=== PATIENT | female | born 1995 | race Hispanic/Latino ===

== ENCOUNTER 2020-11-11 14:01 | Outpatient (CLI) | payer OTHER, SELFPAY ==
--- NOTE | ~2020-11-11 | US_ITS ---
EXAMINATION: US OB /maternal detail DATE: 11/11/2020 14:58 INDICATION: Second trimester anatomic survey TECHNIQUE: Real-time ultrasound of the pelvis was performed. COMPARISON: None. FINDINGS: There is a single living fetus in vertex presentation. The placenta is anterior and 1.3 cm from the i nternal cervical os. heart rate is 147 beats per minute (bpm). cardiac activity and feta l movement are noted. The amniotic fluid index is 19.4 cm which is normal. The following anatomy was identified as normal: 4 chamber heart 3 vessel cord cord insertion kidneys urinary bladder stomach spine diaphragm ventricles cisterna magna cerebellum The following biometric data were obtained: Biparietal diameter (BPD): 5.5 cm; head circumference (HC): 20.3 cm; abdominal circumference (AC): 18 .3 cm; femur length (FL): 3.7 cm. These measurements are concordant. Estimated weight is 522 g +/- 78 g, which correlates with the >97th percentile when 03/22/2021 i s used as estimated date of delivery. As single measurements, these parameters are each equal to the following estimated gestational ages w ith ranges of +/- 2 standard deviations: BPD: 23 weeks 0 days +/- 1 weeks 5 days. HC: 22 weeks 3 days +/- 1 weeks 3 days. AC: 23 weeks 1 days +/- 2 weeks 0 days. FL: 22 weeks 0 days +/- 1 weeks 6 days. estimated gestational age based solely on measurements from this exam is 22 weeks 5 days +/- 1 weeks 4 days. IMPRESSION: 1. Single living fetus in vertex presentation. 2. Estimated weight is 522 g +/- 78 g, which correlates with the >97th percentile when 1 is used as estimated date of delivery. 3. Low-lying placenta. Reviewed, dictated and finalized at location A. IMPRESSION: 1. Single living fetus in vertex presentation. 2. Estimated weight is 522 g +/- 78 g, which correlates with the >97th pe rcentile when 03/22/2021 is used as estimated date of delivery. 3. Low-lying placenta.
== END 2020-11-11 14:02 | disposition home or self-care (01) ==
PROVIDERS: Visit Provider Obstetrics & Gynecology
DX: O44.42 Low lying placenta NOS or without hemorrhage, second trimester (principal); Z3A.22 22 weeks gestation of pregnancy
CPT/HCPCS: 76805

== ENCOUNTER 2020-12-31 09:00 | Outpatient (CLI) | payer OTHER, SELFPAY ==
--- NOTE | ~2020-12-31 | US_ITS ---
EXAMINATION: US OB follow up DATE: 12/31/2020 09:38 INDICATION: Routine care during early third trimester of TECHNIQUE: Real-time ultrasound of the pelvis was performed. The interpreting radiologist was not pre sent for the study. COMPARISON: None. FINDINGS: There is a single living fetus in transverse lie with head to maternal left. The placenta is a nterior and not low-lying with caudal margin 9.4 cm from the internal cervical os. Normal cervical le ngth of 4.2 cm. heart rate is 132 beats per minute (bpm). The amniotic fluid index is 19.1 cm, which is normal (5th%-95%: 9.4-22.8 cm at 28 weeks estimated gestational age). The following biometric data were obtained: BPD: 8.1 cm -> 32 weeks 3 days Head circumference: 28.9 cm -> 31 weeks 5 days Abdominal circumference: 27.4 cm -> 31 weeks 3 days Femur length: 5.4 cm -> 28 weeks 4 days These measurements are concordant. Head circumference to abdominal circumference ratio: 1.05 (normal range 0.96-1.17). Estimated weight: 1618 g (+/-) 243 g or 3 lbs. 9 oz. (+/-) 9 oz. IMPRESSION: 1. Single living fetus in transverse lie with heart rate of 132 bpm. 2. Normal amniotic fluid index of 19.1 cm. 3. Estimated weight is >97th percentile by Hadlock criteria when 03/22/2021 is used as the estim ated date of delivery (MG). Please correlate with clinical information or earlier ultrasounds for mo st accurate MG. Reviewed, dictated and finalized at location A. IMPRESSION: 1. Single living fetus in transverse lie with heart rate of 132 bpm. 2. Normal amniotic fluid index of 19.1 cm. 3. Estimated weight is >97th percentile by Hadlock criteria when 1 is used as the estimated date of delivery (MG). Please correlate with clinic al information or earlier ultrasounds for most accurate MG.
== END 2020-12-31 09:01 | disposition home or self-care (01) ==
PROVIDERS: PCP Obstetrics & Gynecology; Visit Provider Obstetrics & Gynecology
DX: Z34.90 Encounter for supervision of normal pregnancy, unspecified, unspecified trimester (principal); Z3A.00 Weeks of gestation of pregnancy not specified
CPT/HCPCS: 76816

== ENCOUNTER 2021-03-01 10:24 | Outpatient (CLI) | payer OTHER, SELFPAY ==
--- NOTE | ~2021-03-01 | US_ITS ---
EXAMINATION: US OB follow up DATE: 03/01/2021 11:18 INDICATION: Large for estimated gestational age during third trimester TECHNIQUE: Real-time ultrasound of the pelvis was performed. The interpreting radiologist was not pre sent for the study. COMPARISON: 12/31/2020 FINDINGS: There is a single living fetus in vertex presentation. The placenta is anterior. heart rate is 147 beats per minute (bpm). The amniotic fluid index is 13.3 cm, which is normal (5th%-95%: 7.5-24. 4 cm at 37 weeks estimated gestational age). The following biometric data were obtained: BPD: 9.3 cm -> 38 weeks 0 days Head circumference: 34.7 cm -> 40 weeks 1 days Abdominal circumference: 34.5 cm -> 38 weeks 3 days Femur length: 6.5 cm -> 33 weeks 3 days Again seen are discordant biometric data with femoral length to biparietal diameter, abdominal circum ference and head circumference ratios all greater than 2 standard deviations below the mean. Head circumference to abdominal circumference ratio: 1.00 (normal range 0.91-1.05). Estimated weight: 3209 g (+/-) 481 g or 7 lbs. 1 oz. (+/-) 1 lbs. 1 oz. IMPRESSION: 1. Single living fetus in vertex presentation with heart rate of 147 bpm. 2. Normal amniotic fluid index of 13.3 cm. 3. Estimated weight is 68th percentile by Hadlock criteria when 03/22/2021 is used as the estima amber date of delivery (MG). Please correlate with clinical information or earlier ultrasounds for mos t accurate MG. 4. Discordant biometric data with relatively decreased femoral length resulting in femoral length to head circumference, abdominal circumference and biparietal diameter ratios all greater than 2 standar d deviations below the mean. Reviewed, dictated and finalized at location A. IMPRESSION: 1. Single living fetus in vertex presentation with heart rate of 147 bpm. 2. Normal amniotic fluid index of 13.3 cm. 3. Estimated weight is 68th percentile by Hadlock criteria when 03/22/2021 is used as the estimated date of delivery (MG). Please correlate with clinica l information or earlier ultrasounds for most accurate MG. 4. Discordant biometric data with relatively decreased femoral length resulting in femoral length to head circumference, abdominal circumference and biparieta l diameter ratios all greater than 2 standard deviations below the mean.
== END 2021-03-01 10:25 | disposition home or self-care (01) ==
LOC: ANHIMG 10:28
PROVIDERS: PCP Obstetrics & Gynecology; Visit Provider Physician Assistant
DX: O35.8XX9 Maternal care for other (suspected) fetal abnormality and damage, other fetus (principal); Z3A.00 Weeks of gestation of pregnancy not specified
CPT/HCPCS: 76816

== ENCOUNTER 2021-03-07 12:05 | Inpatient (IN) | payer OTHER, SELFPAY ==
[2021-03-07] VITALS (24 sets, daily range): BP systolic 97–131; BP diastolic 57–90; PULSE 71–93; RESP 18; TEMP 36.9–37.2; O2SAT 99
--- NOTE | 2021-03-07 12:30 | LDADM ---
This patient, Yary Hines, was admitted to Labor/Delivery/Recovery 104 on 03/07/21 at 12:17. Plans for labor, pain management and were discussed with patient. Patient/family oriented to hospital policies and general routines including ID bracelet, bed and alarms, visiting hours, pain management, procedures, bathroom and other care routines, personal items, smoking policy, room service/diet and guest tray routines, security routines, and visiting hours. Patient/Family are encouraged to report perceived risks to care and to ask questions if they do not understand what they are told or what they should do. See [facility] for further documentation.
[2021-03-07 13:28] LABS: Basophils Percent Auto 0.3 % (0.2-1.2); Eosinophils Percent Auto 0.4 % (0-4.4); Hematocrit 32.8 % (37.0-47.0); Hemoglobin 10.7 g/dL (12.0-15.0); Immature Granulocyte Absolute 0.03 K/mm3 (0.00-0.031); Immature Granulocyte Percent A 0.4 % (0-0.5); Lymphocytes Absolute Auto 1.61 K/mm3 (0.9-3.2); Lymphocytes Percent Auto 20.3 % (18.3-44.2); Mean Corpuscular HGB Conc 32.6 g/dl (32-36); Mean Corpuscular Hemoglobin 29.5 pg (26-34); Mean Corpuscular Volume 90.4 fl (80-100); Mean Platelet Volume 11.4 fl (7.4-10.4); Monocytes Absolute Auto 0.5 K/mm3 (0.1-0.6); Monocytes Percent Auto 6.3 % (2.6-8.5); Neutrophils Absolute Auto 5.8 K/mm3 (1.3-6.7); Neutrophils Percent Auto 72.3 % (45.5-73.1); Platelet Count Result 242 k/mm3 (150-375); Red Blood Count 3.63 M/mm3 (4.2-5.4)
--- NOTE | 2021-03-07 13:57 | PM.IMHP ---
H&P: HPI History of Present Illness Date/Time: 03/07/21 13:57 25 yo at 38wk4d presents Spontaneous onset of labor since 6:30 a.m. gonzález every 2 minutes denies rupture membranes or vaginal bleeding has had active activity. She is 4 cm upon admission. complicated by MTHFR, hyperemesis gravidarum, and depression. she understands her condition procedure and risks and agrees to proceed Patient is having a boy, named GREGORIA!no to circumcise, combo feed, PPBC Nexplanon, no to epidural, Ped -Dr Lidya Lemus. Chief Complaint: term spontaneous onset of labor Review of Systems Review of Systems: All systems reviewed & are unremarkable except as noted in HPI and below Constitutional: Constitutional: Reports no additional constitutional complaints Eyes: Eyes: Reports no additional eye complaints ENT: Reports system reviewed and no additional complaints, except as documented Cardiovascular: Cardiovascular: Reports no additional cardiovascular complaints Respiratory: Respiratory: Reports no additional respiratory complaints Gastrointestinal: Gastrointestinal: Reports no additional gastrointestinal complaints Genitourinary: Genitourinary: Reports no additional female genitourinary complaints Musculoskeletal: Musculoskeletal: Reports no additional musculoskeletal complaints Integumentary/Breasts: Skin/Breast: Reports system reviewed and no additional complaints, except as docu Neurologic: Reports system reviewed and no additional complaints, except as documented Psychiatric: Psychiatric: Reports no additional psychiatric complaints Endocrine: Endocrine: Reports no additional endocrine complaints Hematologic/Lymphatic: Hematologic/Lymphatic: Reports no additional hematologic/lymphatic complaints Allergic/Immunologic: Allergic/Immunologic: Reports no additional allergic/immunologic complaints [facility] Past Medical History Medical History (Updated 03/07/21 @ 14:04 by Jose Luis Montoya MD) Anemia BV (bacterial vaginosis) Candidiasis of vagina Depressive disorder Homozygous MTHFR mutation [id number] Surgical History Surgical History (Updated 03/07/21 @ 14:04 by Jose Luis Montoya MD) History of cholecystectomy Cholecystectomy - 08/27/2016 Social History Social History (Updated 03/07/21 @ 14:06 by Jose Luis Montoya MD) Smoking status: Never smoker Second hand tobacco smoke exposure: No Alcohol intake: never Substance use: never Substance use type: does not use Living arrangements: with family Occupation/Education: occupation 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, 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 Gender identity (if verbalized by the patient): Female Sexual Orientation (if Verbalized by the Patient): Straight or Heterosexual Spiritual care concerns: No Agree to blood products: Yes Meds Home Medications and Allergies Allergies Allergy/AdvReac Type Severity Reaction Status Date / Time No Known Allergies Allergy Unverified 08/26/16 11:32 Vital Signs Vital Signs - 24 hr 03/07/21 13:35 03/07/21 13:45 Pulse Rate 88 74 Blood Pressure 108/69 116/77 Exam Const: General: cooperative, healthy appearing, comfortable, no acute distress, well developed, alert, awake and Physically active Nutritional Appearance: average body habitus Orientation/consciousness: patient oriented x3 Limitations: no limitations HENMT: Head: normal to inspection Eyes: General: appearance normal, both eyes and all related structures Neck: Neck: normal visual inspection and full ROM Chest: Chest palpation & inspection: normal inspection of the chest Breast/axilla inspection: normal inspection of the breasts Resp: Effort & Inspection: normal respiratory effort Auscultation: clear to auscultation bilaterally Cardio: Rate: regular rate Rhythm: regular rhythm Heart sounds: S1 normal heart sound present and S2 normal heart sound present GI: Inspection: normal t
--- NOTE | 2021-03-07 14:00 | WPDHPUPDATE1 ---
History and Physical Update Update Date/Time: 03/07/21 14:00 History and Physical has been reviewed, including an updated exam of the patient. There are NO changes in the patient's condition. Risks, benefits, and alternatives have been discussed and questions answered. Patient agrees to proceed with procedure. 25 yo at 38wk4d presents Spontaneous onset of labor since 6:30 a.m. gonzález every 2 minutes denies rupture membranes or vaginal bleeding has had active activity. She is 4 cm upon admission. complicated by MTHFR, hyperemesis gravidarum, and depression. she understands her condition procedure and risks and agrees to proceed Patient is having a boy, named GREGORIA!no to circumcise, combo feed, PPBC Nexplanon, no to epidural, Ped -Dr Lidya Lemus
--- NOTE | 2021-03-07 14:00 | WPDOBADMIT ---
Obstetrics - Admit Note Admission Note: record reviewed. No pertinent additions to the history and/or any subsequent changes in the physical findings that are not consistent with the expected course of the were found. Additions to the history and/or subsequent changes in the physical findings follow. None. 25 yo at 38wk4d presents Spontaneous onset of labor since 6:30 a.m. gonzález every 2 minutes denies rupture membranes or vaginal bleeding has had active activity. She is 4 cm upon admission. complicated by MTHFR, hyperemesis gravidarum, and depression. she understands her condition procedure and risks and agrees to proceed Patient is having a boy, named GREGORIA!no to circumcise, combo feed, PPBC Nexplanon, no to epidural, Ped -Dr Lidya Lemus
--- NOTE | 2021-03-07 14:33 | PM.OBPNLAB ---
Pain Control Date/time seen: 03/07/21 14:33 Pain control: tolerating well Pelvic Exam Dilation (cm): 8 Effacement (%): 100 station: 0 Amniotic membrane status: Ruptured Contractions Monitor mode: External Contraction frequency: 2 Contraction duration: 46 Contraction pattern: Regular Contraction phase: Contraction Contraction intensity: Strong/Firm Status status: Category l Assessment and Plan Assessment: active labor Plan: continuous present management
[2021-03-07 14:41] LABS: HIV 1/2 Ab P24 Ag Result Negative (Negative)
--- NOTE | 2021-03-07 15:34 | P.PCNOB_ITS ---
OB - Delivery Note Procedure Delivery date: 03/07/21 Procedure: normal spontaneous vertex vaginal delivery a viable male infant and placenta Repair of second-degree perineal laceration Intrapartal events: None Induction method: none Delivery augmentation: rupture of membranes Delivery monitor: external FHT and external uterine Route of delivery: Episiotomy description: None Laceration Description: Perineal - 2nd Degree Delivery repair: chromic ( 2 0) Specimen: Yes ( placenta, cord blood, cord blood gases) Quantitative Blood Loss (ml): 100 Anesthesia type: Local ( 1% lidocaine) Disposition: floor Complications: none Counts correct Delivery in room 104 VTE prevention not applicable patient ambulatory No antibiotics Cervix rectum were checked no sponges left in the vagina and the rectal sphincter intact Narrative: patient completely dilated with the use of typesetting machine tender patient was refreshed on pushing technique. Patient then had a normal 2nd stage of labor with a normal spontaneous vertex vaginal delivery a viable male with nuchal cord x1 reduced at delivery. After the head was delivered the shoulders delivered easily and the was delivered and placed onto the maternal abdomen. The cord was clamped and cut vigorous stimulation allowed for normal transition and spontaneous respirations and cry. Baby was handed to the nursery nurse in attendance. scores given 8 9 at 1 and 5 minutes with weight 7 lb 10 oz length 20 in long. The baby was born at 3:07 p.m. the placenta was then delivered intact with a three-vessel cord spontaneously at 3:10 p.m. Cord gases and cord blood were obtained and the placenta was sent to pathology. The uterus contracted well with Pitocin given intravenously. The second-degree perineal laceration was then repaired with 2 0 chromic in a running fashion with excellent reapproximation of the tissues and normal sphincter. The knot was left in the vagina. Patient tolerated procedure well mom and baby in birthing suite 104. Baby Date of : 03/07/21 Time of : 15:07 Weeks of gestation at delivery: 38 gender: Male ( Felix) Weight (pounds): 7 Weight (ounces): 10 presentation: vertex position: Left Occiput Anterior Placenta delivery description: Spontaneous and Normal Configuration cord vessel description: 3 Vessels and Nuchal Cord score one minute: 8 score five minutes: 9 Narrative: baby was handed to the nursery nurse in attendance normal transition normal exam baby taken to the nursery stable condition mom skin to skin contact given.
[2021-03-08] VITALS: BP 123/83; PULSE 64; RESP 18; TEMP 36.8; O2SAT 100
[2021-03-08 04:30] VITALS: BP 96/60; PULSE 82; RESP 16; TEMP 36.3; O2SAT 100
[2021-03-08 05:10] LABS: Hematocrit 29.5 % (37.0-47.0); Hemoglobin 9.4 g/dL (12.0-15.0)
[2021-03-08] MEDS: POLYSACCHARIDE IRON COMPLEX 150 MG CAPSULE PO ×2 (07:44→18:30)
[2021-03-08] MEDS: DOCUSATE SODIUM 100 MG CAPSULE PO ×2 (07:44→18:30)
[2021-03-08 07:45] VITALS: BP 103/72; PULSE 76; RESP 18; TEMP 36.8; O2SAT 99
[2021-03-08 08:05] LABS: Rapid Plasma Reagin Non-Reactive (NonReactive)
[2021-03-08] MEDS: MULTIVIT/MIN/PREN/FOL AC/IRON TABLET 1 TAB PO (09:02)
--- NOTE | 2021-03-08 11:40 | PC.NURSE ---
RN requested feeding observation. Upon entering mother has infant latch to breast in cradle with slightly shallow latch. All teaching done thru superintendent custodian janitor line. Reviewed positioning/alignment in cross cradle, holding breast in ?U? hold and guided asymmetrical latch on. Discussed rational for each. Mother chose to stay in cradle, reporting no discomfort with feeding. . nursed eagerly, with steady draws and frequent swallowing noted. Suggested mother stimulate while feeding to increase stimulate, increase intake and to assist with maintaining deep latch. Reviewed signs of a correct latch, effective nursing and suck swallow ratio. Infant would slip to shallow latch, mother reports tenderness. Demonstrated how to adjust latch more deeply while feeding. Mother reports she can feel a slight change in latch and has no tenderness. Nipple care reviewed of lanolin after feedings, warm compresses as needed. Instructed mother to call out for RN assistance if she is unable to latch for feeding or she has discomfort with nursing. Mother reports she breastfed first child for 3 weeks and switched to bottle with concerns was not getting enough. Reviewed feeding cues, frequencies, duration of feedings, feeding elimination flow sheet, and signs of adequate intake. Discussed blue feeding/elimination flow sheet, has had adequate feedings and output. Mother states she will formula feed if she feels infant is not acting satisfied. Suggested mother put infant to breast, offering both breasts per feeding then supplementing if she wishes. Discussed how increased supplementation should assist with stimulation of milk supply. Mother is in agreement.
[2021-03-08 12:01] VITALS: BP 103/74; PULSE 87; RESP 16; TEMP 36.8; O2SAT 99
--- NOTE | 2021-03-08 12:45 | PC.NURSE ---
Senior Network Systems Engineer used for patient questions and to review the admission packet. Patient given time to ask questions and had the information to access the [place] discharge video online.
--- NOTE | 2021-03-08 18:12 | PM.OBPNVD ---
OB - PN: Subj Subjective Date/time seen: 03/08/21 18:12 Patient comments: no complaints, pain well controlled, tolerating diet and flatus present [place] baby status: doing well [place] feeding status: exclusively breast feeding OB - PN: Obj Data Labs CBC & Chem 7: 03/08/21 04:18 Labs: Laboratory Results - last 24 hr 03/07/21 03/08/21 13:21 04:18 Hgb 9.4 L Hct 29.5 L RPR Non-reactive OB - PN A/P Assessment and Plan (1) Term delivered: Code(s): O80 - Encounter for full-term uncomplicated delivery Status: Acute Plan day: 1 Plan: routine care, discharge home and follow up 6 weeks Time Spent With Patient Time: Total time spent is greater than 50% in coordination of care (as documented) at patient's floor/unit and/or counseling patient: Time with patient: less than 15 minutes Review of Systems Review of Systems: All systems reviewed & are unremarkable except as noted in HPI and below Exam Const: General: cooperative, healthy appearing, comfortable, no acute distress, well developed, alert, awake and Physically active Nutritional Appearance: average body habitus Orientation/consciousness: patient oriented x3 Limitations: no limitations HENMT: Head: normal to inspection Eyes: General: appearance normal, both eyes and all related structures Neck: Neck: normal visual inspection Chest: Chest palpation & inspection: normal inspection of the chest Breast/axilla inspection: normal inspection of the breasts Breast/axilla palpation: normal palpation of the breasts Resp: Effort & Inspection: normal respiratory effort Auscultation: clear to auscultation bilaterally Cardio: Rate: regular rate Rhythm: regular rhythm GI: Inspection: normal to inspection GI Palp: Yes Soft to palpation Auscultation: normal bowel sounds : External Female Exam: normal external appearance Bimanual exam- vagina & uterus: non-tender Back/Spine/Pelvis: Back: no CVA tenderness Skin: General skin exam: normal color Neuro: General: patient oriented x3, gait normal, tone normal and moves all extremities Extrem: General: normal to inspection and full ROM Psych: Appearance: grossly normal Mental Status: mental status grossly normal Speech and movement: Normal speech and movement present Affect: normal affect Attitude: cooperative Thought process: Normal thought process present Thought content: Yes Normal thought content present Insight: Good insight present (Psych) Judgement: Good judgement present (Psych)
[2021-03-08 20:30] VITALS: BP 111/80; PULSE 75; RESP 16; TEMP 36.3; O2SAT 98
[2021-03-09 07:30] VITALS: BP 110/80; PULSE 74; RESP 16; TEMP 36.2; O2SAT 100
[2021-03-09] MEDS: MULTIVIT/MIN/PREN/FOL AC/IRON TABLET 1 TAB PO (08:38)
[2021-03-09] MEDS: POLYSACCHARIDE IRON COMPLEX 150 MG CAPSULE PO (08:39)
[2021-03-09] MEDS: DOCUSATE SODIUM 100 MG CAPSULE PO (08:39)
--- NOTE | 2021-03-09 10:49 | PC.NURSE ---
Patient viewed the discharge video Mother & Baby Care, The First Two Weeks . Patient was given the opportunity and encouraged to ask questions. Patient verbalized understanding of information shared and has been given the mother/baby guide for home reference.
--- NOTE | 2021-03-09 11:20 | PC.NURSE ---
Assisted with infant to breast, due to mother reporting slight nipple discomfort. is able to freely thrust tongue past gum ridge and flange both lips. Skin is intact on both nipples, no redness and bruising noted. Reviewed infant feeding cues, frequencies, duration of feedings, feeding elimination flow sheet, and signs of adequate intake. Demonstrated stimulation techniques to wake for feeding. Assisted with infant to breast. Reviewed positioning/alignment in cross cradle, holding breast in ?U? hold and guided asymmetrical latch on. Discussed rational for each. able to latch correctly within a few attempts. nursed eagerly, with steady draws and frequent swallowing noted. Suggested mother stimulate while feeding to increase stimulate, increase intake and to assist with maintaining deep latch. Reviewed signs of a correct latch, effective nursing and suck swallow ratio. Infant would slip to shallow latch, mother reports tenderness. Demonstrated how to adjust latch more deeply while feeding. Mother reports she can feel change in latch and has no tenderness. Nipple care reviewed of lanolin after feedings, warm compresses as needed. Mother states when releases latch she will usually bottle feed, Advised to return to breast or switch to other breast before bottle feeding to assist with stimulating milk supply.
--- NOTE | 2021-03-09 11:20 | PC.NURSE ---
All teaching thru cook camp line. Mother is able to independently latch with appropriate positioning/alignment. She reports slight any nipple discomfort, is feeding as required and waking infant to feed if needed. is breast and bottle fed by choice, as required, in the past 24 hours, and is currently meeting outcomes for weight, output, jaundice and feeding frequencies. Mother states she feels confident to continue current feeding plan of breast and bottle feeding at home. Reviewed transition to breast milk, signs of adequate intake, and engorgement/relief. Instructed to call ICP if intake/output less than required. Reviewed regular medications mother is taking. Information provided per [facility]. Reviewed community resources on the [facility] website and in the Mom/Baby guide. Information on outpatient services provided. Stressed for mother to contact her WIC office for the [place]o speaking peer counselor. Mother switched to bottle feeding with first child for lack of assistance, she felt was not getting enough to eat and has sore nipples. Reviewed nipple care. Mother has no further questions at this time.
--- NOTE | 2021-03-09 13:03 | PC.NURSE ---
Discharge instructions done through coffee roaster
--- NOTE | 2021-03-09 16:40 | PM.OBDSVD ---
DS: Admitting Diagnosis Admitting Diagnosis (1) Term : Code(s): Z34.90 - Encounter for supervision of normal , unspecified, unspecified trimester Status: Acute (2) Spontaneous onset of labor: Status: Acute (3) Homozygous MTHFR mutation C677T: Code(s): Z15.89 - Genetic susceptibility to other disease Status: Acute (4) Depressive disorder: Code(s): F32.9 - Major depressive disorder, single episode, unspecified Status: Acute (5) Anemia: Code(s): D64.9 - Anemia, unspecified Status: Acute DS: Discharge Diagnosis Discharge Diagnosis (1) Term delivered: Code(s): O80 - Encounter for full-term uncomplicated delivery Status: Acute (2) Spontaneous onset of labor: Status: Acute (3) Homozygous MTHFR mutation C677T: Code(s): Z15.89 - Genetic susceptibility to other disease Status: Acute (4) Depressive disorder: Code(s): F32.9 - Major depressive disorder, single episode, unspecified Status: Acute (5) Anemia: Code(s): D64.9 - Anemia, unspecified Status: Acute OB - DS: Summary Hospital Course Time spent discussing smoking cessation with patient: 3 to 10 minutes OB Procedures : Ultrasound OB Procedures Intrapartum: Spontaneous Vag Delivery OB Procedures: : None Peripartum Data Infant Delivery Method: Natural Vaginal Laceration Description: Perineal - 2nd Degree Episiotomy description: None Procedures: normal spontaneous vertex vaginal delivery a viable male infant and placenta Repair of second-degree perineal laceration complications: none Walsh 1: Gender: Male ( Felix) Disposition of : home Status at Discharge Cognitive/behavioral status at discharge: normal Functional status at discharge: independent ambulation Overall status at discharge: patient is back to baseline Time Spent with Patient Time attestation: Total time spent providing and/or coordinating discharge services: Exam Const: General: cooperative, healthy appearing, comfortable, no acute distress, well developed, alert, awake and Physically active HENMT: Head: normal to inspection Eyes: General: appearance normal, both eyes and all related structures Neck: Neck: normal visual inspection and full ROM Chest: Chest palpation & inspection: normal inspection of the chest Breast/axilla inspection: normal inspection of the breasts Resp: Effort & Inspection: normal respiratory effort Auscultation: clear to auscultation bilaterally Cardio: Rate: regular rate Rhythm: regular rhythm Heart sounds: S1 normal heart sound present and S2 normal heart sound present GI: Inspection: normal to inspection GI Palp: Yes Soft to palpation Auscultation: normal bowel sounds : External Female Exam: normal external appearance and normal appearance of the urethra Speculum Exam - Vagina: normal appearance of the vagina Bimanual exam- vagina & uterus: non-tender OB/external & speculum: external exam normal Back/Spine/Pelvis: Back: no CVA tenderness Skin: General skin exam: normal color Neuro: General: patient oriented x3, gait normal, tone normal, moves all extremities, Normal light touch and pain sensation, no meningeal signs and no focal motor deficits Extrem: General: normal to inspection, full ROM and no calf tenderness Psych: Appearance: grossly normal Mental Status: mental status grossly normal Speech and movement: Normal speech and movement present Affect: normal affect Attitude: cooperative Thought process: Normal thought process present Thought content: Yes Normal thought content present Insight: Good insight present (Psych) Judgement: Good judgement present (Psych) DS: Data Data Completed and Pending Labs on day of discharge: Labs from last 24 hours 03/07/21 03/07/21 03/07/21 13:21 13:21 13:21 WBC RBC Hgb Hct MCV MCH MCHC RDW Plt Cou
[2021-03-12 10:25] VITALS: BP 102/72; PULSE 85; RESP 16; TEMP 37.2; O2SAT 100
== END 2021-03-09 12:55 | disposition home or self-care (01) | DRG 560 ==
LOC: ANHLDR 15:56 → ANHOB2 19:12
PROVIDERS: Admitting Provider Obstetrics & Gynecology; Visit Provider Obstetrics & Gynecology
DX: O99.284 Endocrine, nutritional and metabolic diseases complicating childbirth (principal); O70.1 Second degree perineal laceration during delivery; E72.12 Methylenetetrahydrofolate reductase deficiency; O69.1XX0 Labor and delivery complicated by cord around neck, with compression, not applicable or unspecified; Z3A.38 38 weeks gestation of pregnancy; Z37.0 Single live birth
CPT/HCPCS: 36415; 85014; 85018; 85025; 86592; 86703; 86850; 86900; 86901; 88307; A9270; G0432

== ENCOUNTER 2021-12-23 10:45 | Outpatient (CLI) | payer OTHER, SELFPAY ==
--- NOTE | ~2021-12-23 | XR_ITS ---
EXAMINATION: XR lumbar spine 2-3V DATE: 12/23/2021 11:40 INDICATION: Left hip pain TECHNIQUE: Anteroposterior and lateral views of the lumbar spine, and cone-down lateral view of the l umbosacral junction were obtained. COMPARISON: None. FINDINGS: There is no fracture, dislocation, or subluxation. The vertebral body heights, alignment, a nd intervertebral disc spaces are normal. The paravertebral soft tissues are unremarkable. Surgical c lips in the right upper quadrant are likely from prior cholecystectomy. IMPRESSION: 1. No acute osseous abnormality. Reviewed, dictated and finalized at location A.
--- NOTE | ~2021-12-23 | XR_ITS ---
EXAMINATION: XR hand LT 2V INDICATION: Left hand pain TECHNIQUE: Two views of the left hand are obtained. COMPARISON: None available FINDINGS: Bone alignment is normal. There is no fracture. The joint spaces are normal. No abnormal sc lerosis or erosions are identified. The soft tissues are unremarkable. IMPRESSION: 1. No acute osseous abnormality. Reviewed, dictated and finalized at location A.
--- NOTE | ~2021-12-23 | XR_ITS ---
EXAMINATION: XR hand RT 2V INDICATION: Right hand pain TECHNIQUE: Two views of the right hand are obtained. COMPARISON: None available FINDINGS: Bone alignment is normal. There is no fracture. The joint spaces are normal. No abnormal sc lerosis or erosions are identified. The soft tissues are unremarkable. IMPRESSION: 1. No acute osseous abnormality. Reviewed, dictated and finalized at location A.
== END 2021-12-23 10:46 | disposition home or self-care (01) ==
PROVIDERS: Visit Provider Physician Assistant
DX: M79.642 Pain in left hand (principal)
CPT/HCPCS: 72100; 73120